=== PATIENT | female | born 1990 | race African-American/Black ===

== ENCOUNTER 2017-11-30 02:15 | Emergency (ER) | payer SELFPAY ==
[2017-11-30] MEDS ORDERED: Fluorescein Opthalmic Strip ONE (02:29)
[2017-11-30] MEDS ORDERED: Proparacaine 0.5% Opth 15 ML BOT ONE (02:31)
== END 2017-11-30 03:00 | disposition home or self-care (01) ==
LOC: NAV ERS 02:15
DX: H57.11 Ocular pain, right eye (principal); J45.909 Unspecified asthma, uncomplicated
CPT/HCPCS: 99283

== ENCOUNTER 2019-04-14 13:00 | Emergency (ER) | payer SELFPAY ==
[2019-04-14] MEDS ORDERED: Lidocaine 1% (PF) 30 ML VIAL ONE (13:24)
== END 2019-04-14 13:46 | disposition home or self-care (01) ==
LOC: NAV ERS 13:00
DX: T16.2XXA Foreign body in left ear, initial encounter (principal)
CPT/HCPCS: 69200; J2001

== ENCOUNTER 2019-08-15 09:05 | Outpatient (CLI) | payer MEDICAID ==
--- NOTE | 2019-08-15 10:33 | ULT ---
Complete obstetrical ultrasound INDICATION: Size and dates TECHNIQUE: Grayscale, M-mode Doppler and Doppler images were obtained of the abdomen and pelvis to ev aluate the patient's known . COMPARISON: None. FINDINGS: Number of gestations: Single. Presentation: Posterior. Placental location: Anterior Previa: No evidence for previa. Cervical length: Not evaluated MERY: 12.4 cm. heart rate: 146 bpm. Biparietal diameter: 5cm, 21 weeks 1 day, . Head circumference: 18.7 cm, 21 weeks 0 days, Abdominal circumference: 16.6 cm cm, 21 weeks 4 days, Femoral length: 3.5 cmcm, 21 weeks 0 days, Estimated weight: 416 g +/- 61g , SURVEY: head: Normal appearing. Cerebellum: Normal appearing. Cisterna magna: Normal appearing. Lateral ventricles: Normal appearing. 4 chamber heart: Normal appearing.. Stomach: Normal appearing. Kidneys: Normal appearing. Cord insertion: Normal appearing. Bladder: Normal appearing. Spine: Normal appearing. Lips and nose: Normal appearing. Extremities: Normal appearing. Three-vessel CORD: Normal appearing. The average gestational age by ultrasound is 21 weeks 1 day with estimated due date of 12/25/2019. IMPRESSION: 1. Single live intrauterine gestation with size and dates as above.
== END 2019-08-15 09:06 | disposition home or self-care (01) ==
LOC: NAV ULT 09:05
PROVIDERS: ATTEND Family Medicine
DX: Z34.82 Encounter for supervision of other normal pregnancy, second trimester (principal); Z3A.21 21 weeks gestation of pregnancy
CPT/HCPCS: 76805

== ENCOUNTER 2020-01-09 09:51 | Emergency (ER) | payer OTHER ==
[2020-01-09] MEDS ORDERED: Acetaminophen 325 MG TAB ONE (10:33)
--- NOTE | 2020-01-09 11:03 | CT ---
CT the pelvis without contrast INDICATION: History of recent vaginal delivery 6 days ago at [facility]. The patient h ad an episiotomy at the time. Patient now has continued pain and swelling at the episiotomy area. Worse with walking and sitting. No vaginal discharge reported. COMPARISON: None FINDINGS: There is a large postgravid uterus. There are internal areas of intraluminal hyperdensity w hich may reflect a residual hemorrhagic blood products and blood clots versus prominent postgravid endometrium versus retained products of conception. No free fluid is demonstrated. Within the region of the vulva, there is some slight asymmetric inflammatory stranding seen involving the right labia majora. No definite drainable fluid collection is grossly evident on this noncontrast examination. Th ere are mild degenerative changes involving the SI joints. No acute osseous abnormality is evident. IMPRESSION: 1. Mild inflammatory stranding involving the right aspect of the vulva, in the region of the right la melissa majora. Recommend correlation with clinical examination. No definite drainable fluid collection is evident within the limitations of this noncontrast exam. 2. Large postgravid uterus with internal areas of intraluminal hyperdensity which may reflect residua l hemorrhagic blood products and blood clots versus postgravid endometrial lining versus retained products of conception. Recommend correlation with the clinical examination. If the patient is not ac tively bleeding, retained products conception is felt to be less likely.
[2020-01-09] MEDS ORDERED: Amoxicillin/Potassium Clav 875 MG TAB ONE (11:23)
[2020-01-09] MEDS ORDERED: Amoxicillin/Potassium Clav 250 mg/5 ml Oral Suspension ONE (11:24)
== END 2020-01-09 11:30 | disposition home or self-care (01) ==
LOC: NAV ERS 09:51
DX: O99.63 Diseases of the digestive system complicating the puerperium (principal); K59.00 Constipation, unspecified; O99.89 Other specified diseases and conditions complicating pregnancy, childbirth and the puerperium; R10.2 Pelvic and perineal pain; O99.53 Diseases of the respiratory system complicating the puerperium; J45.909 Unspecified asthma, uncomplicated; Z79.1 Long term (current) use of non-steroidal anti-inflammatories (NSAID)
CPT/HCPCS: 72192

== ENCOUNTER 2021-09-07 08:24 | Emergency (ER) | payer OTHER ==
[2021-09-07 09:04] LABS: Bilirubin Negative (Negative); Blood, Urine Negative (Negative); Clarity Clear (Clear); Glucose, Urine (Dipstick) Negative (Negative); Ketone, Urine Trace mg/dL (Negative); Leukocyte Negative (Negative); Nitrite Negative (Negative); Protein, Urine (Dipstick) Negative (Neg-Trace); Specific Gravity, Urine 1.025 (1.005-1.030); Urobilinogen 0.2 mg/dL (Less than 2); pH, Urine 5.5 (5.0-9.0)
[2021-09-07 09:43] LABS: Pregnancy Test - Urine (BHCG) Negative (Negative); Pregu Control Background? CLEAR/WHITE (CLR/WHITE); Pregu Control Bar Appear? YES (CONTROL BAR); Specific Gravity 1.025 (1.002-1.036)
[2021-09-07 10:51] LABS: Wet Prep Clue Cells Clue Cells Absent (None Seen); Wet Prep Trichomonas Trichomonas PRESENT (None Seen)
[2021-09-10 21:05] LABS: Chlamydia by PCR Inconclusive (NotDetected); GC by PCR Inconclusive (NotDetected)
== END 2021-09-07 11:16 | disposition home or self-care (01) ==
LOC: NAV ERS 08:24
DX: A59.01 Trichomonal vulvovaginitis (principal); J45.909 Unspecified asthma, uncomplicated; Z79.899 Other long term (current) drug therapy
CPT/HCPCS: 81003; 81025; 87210; 87491; 87591; 99284

== ENCOUNTER 2022-10-01 11:32 | Emergency (ER) | payer OTHER | END 2022-10-01 12:34 | disposition home or self-care (01) | LOC: NAV ERS 11:32 | DX: L02.415 Cutaneous abscess of right lower limb (principal) | CPT/HCPCS: 87070; 87077; 87186; 87205; 99283 ==

== ENCOUNTER 2023-01-28 11:46 | Emergency (ER) | payer OTHER ==
[2023-01-28] MEDS ORDERED: Boostrix 0.5 ML (Tdap) VIAL (>/=7 yrs of age) ONE (12:25)
[2023-01-28] MEDS ORDERED: Lidocaine 1% (PF) 30 ML VIAL ONE (12:32)
[2023-01-28] MEDS ORDERED: Bacitracin 1 PK ONE (13:28)
[2023-01-28] MEDS ORDERED: Cephalexin 250 MG CAP ONE (13:35)
== END 2023-01-28 13:59 | disposition home or self-care (01) ==
LOC: NAV ERS 11:46
DX: S66.320A Laceration of extensor muscle, fascia and tendon of right index finger at wrist and hand level, initial encounter (principal); Z23 Encounter for immunization; W25.XXXA Contact with sharp glass, initial encounter
CPT/HCPCS: 12001; 90471; 90715; J2001